=== PATIENT | male | born 2000 | race Caucasian/White ===

== ENCOUNTER 2024-05-12 18:49 | Observation (INO) | payer OTHER ==
[~2024-05-12] VITALS: Ht 182.9 cm; Wt 87.2 kg
[2024-05-12] VITALS (55 sets, daily range): BP systolic 94–135; BP diastolic 51–98
--- NOTE | 2024-05-12 18:50 | NUR ---
PT TO [facility] #10 VIA EMS, PT ARRIVES INTUBATED WITH EMS REPORTING 21 @ TEETH, STATES INTUBATED DUE TO FEAR OF LOSING AIRWAY AFTER ADMINISTRATION OF KETAMINE AND VOMITING. MD AT BEDSIDE, ADDITIONAL STAFF AT BEDSIDE FOR ASSISTANCE, EKG MD CONCHA QUESTIONED FOR EXTUBATION, DENIES AT THIS TIME. AWAITING ALL FURTHER ORDERS.
[2024-05-12] MEDS ORDERED: SODIUM CHLORIDE 0.9% 1,000 ML IV ONE (19:00)
[2024-05-12] MEDS ORDERED: PROPOFOL 100 ML IV ONE (19:00)
--- NOTE | 2024-05-12 19:05 | NUR ---
REPORT RECEIVED FROM EXCAVATING MACHINE OPERATOR. PT IS INTUBATED AT THIS TIME. VSS.
[2024-05-12 19:22] LABS: URINE BILIRUBIN - DIPSTICK Negative (NEGATIVE); URINE BLOOD DIPSTICK Negative (NEGATIVE); URINE COLOR Yellow; URINE GLUCOSE - DIPSTICK Negative (NEGATIVE); URINE KETONE Negative (NEGATIVE); URINE LEUK ESTERASE Negative (NEGATIVE); URINE NITRITE - DIPSTICK Negative (Negative); URINE PH 5.5 (4.5-8.0); URINE PROTEIN - DIPSTICK Negative (NEG-TRACE); URINE UROBILINOGEN - DIPSTICK 0.2 E.U./dL (0.2)
[2024-05-12 19:22] LABS: BASO% 0.7 % (0-3); EOS% 4.6 % (0-8); HEMATOCRIT 43.1 % (39.0-50.0); HEMOGLOBIN 14.6 g/dl (14.0-18.0); IMMATURE GRANULOCYTES 0.6 % (0.0-5.0); LYMPH% 16.9 % (15-41); MEAN CELL VOLUME 93.5 fL CALC (80.0-100.0); MEAN CORPUSCULAR HGB 31.7 pG CALC (26.0-32.0); MEAN CORPUSCULAR HGB CONC 33.9 g/dL CAL (32.0-36.0); MONO% 5.3 % (2-13); NEUT# 5.19 thou/uL (1.82-7.42); NEUT% 71.9 % (42-76); RED BLOOD COUNT 4.61 mill/uL (4.70-6.10); RED CELL DISTRI WIDTH 12.1 % (11.5-15.5)
--- NOTE | 2024-05-12 19:30 | NUR ---
PT IS INTUBATED, PROPOFOL STARTED PER ORDERS. PT IS NOT OPENING HIS EYES, HE IS MOVING HIS EXTREMITIES AND BITING TUBE. PROPOFOL TITRATED UP PER ORDERS. OG PLACED, CXR CONFIRMED PLACMENT. VSS. RESPIRATORY AT BEDSIDE.
[2024-05-12 19:34] LABS: ALBUMIN 4.6 g/dL (3.2-5.0); BILIRUBIN, TOTAL 0.5 mg/dL (0.2-1.3); POTASSIUM 3.9 mmol/l (3.5-5.1); TOTAL PROTEIN 7.1 g/dL (6.3-8.2)
[2024-05-12] MEDS ORDERED: LORazepam 2 MG/ML IV ONE (19:45)
--- NOTE | 2024-05-12 19:47 | NUR ---
ATIVAN GIVEN PER ORDERS PT IS ATTEMPTING TO PULL AT LINES. VSS. PROPOFOL TITRATED PER ORDERS. PT DOES NOT OPEN HIS EYES AT THIS TIME.
--- NOTE | 2024-05-12 20:55 | NUR ---
PT REMAINS INTUBATED/VENTED, PROPOFOL RUNNING TO LAC ORDERED. VSS.
[2024-05-12] MEDS ORDERED: LACTATED RINGER'S 1,000 ML IV PRN (22:00)
--- NOTE | 2024-05-12 22:05 | NUR ---
PT TO CT WITH RN AND RESPIRATORY
--- NOTE | 2024-05-12 22:30 | NUR ---
returned from ct to er 15 as icu hold. transferred to bed x4 assists. vent cont. remains sedated. shelter monitor shows sinus tach. ivf infusing well. goel cath in place. urine clear yellow. history per er record. wrist restraints cont. hob 30 degrees. fall precautions cont.
--- NOTE | 2024-05-12 22:30 | NUR ---
NURSE TO NURSE REPORT
[2024-05-13] VITALS: BP 135/94
[2024-05-13 00:05] VITALS: BP 133/85
--- NOTE | 2024-05-13 02:00 | NUR ---
[id number] pt restless. attempting to extubate self. rt @ bedside & extubated pt. pt smells of etoh. pt is confused. attempted to reorient without success. ivf cont. goel draining well, removed goel per pt request & pt voided well. pt pulled iv out of lac, removed rehabilitation tech, bp cuff & pulse ox, & began to dress self. spoke to pt several times about leaving facility ama & etoh level. etoh level drawn & pt was made aware of result. fed pt turkey wrap, juices & gatorade. trains dispatcher supervisor & security talked to pt several times. pt became more alert & aware of surroundings. cordless phone given to him so he could make phone calls to family & friends in prep for release. pt left several messages to various people. pt up in room & is steady on feet. pt requires MUCH supervision.
--- NOTE | 2024-05-13 03:43 | NUR ---
1252 pt extubated after awakening and following commands while meeting parameters. NIF(-30) cuff deflated and ett withdrawn. pt vocalized name. no stridor noted. bbs. nad. vss.
--- NOTE | 2024-05-13 04:00 | NUR ---
to bed per self then went to sleep.
--- NOTE | 2024-05-13 05:45 | NUR ---
lab here. blood drawn.
[2024-05-13 06:01] LABS: BASO% 0.3 % (0-3); EOS% 1.5 % (0-8); HEMATOCRIT 38.5 % (39.0-50.0); HEMOGLOBIN 13.3 g/dl (14.0-18.0); IMMATURE GRANULOCYTES 0.2 % (0.0-5.0); LYMPH% 21.2 % (15-41); MEAN CELL VOLUME 94.4 fL CALC (80.0-100.0); MEAN CORPUSCULAR HGB 32.6 pG CALC (26.0-32.0); MEAN CORPUSCULAR HGB CONC 34.5 g/dL CAL (32.0-36.0); MONO% 8.4 % (2-13); NEUT# 7.7 thou/uL (1.82-7.42); NEUT% 68.4 % (42-76); RED BLOOD COUNT 4.08 mill/uL (4.70-6.10); RED CELL DISTRI WIDTH 12.5 % (11.5-15.5)
[2024-05-13 06:13] LABS: CREATININE 0.9 mg/dL (0.7-1.3); MAGNESIUM 1.9 mg/dL (1.6-2.3)
--- NOTE | 2024-05-13 07:45 | NUR ---
PT BROUGHT UP VIA BED TO ICU ROOM 7. PT IN STABLE CONDITION. ORIENTED TO ROOM AND CALL LIGHT. ALL BELONGINGS BROUGHT WITH PT. CALL LIGHT IN REACH.
[2024-05-13 08:10] VITALS: BP 114/70
[2024-05-13] MEDS ORDERED: THIAMINE HCL 100 MG TAB PO SCH (09:00)
[2024-05-13] MEDS ORDERED: FOLIC ACID 1 MG/TAB PO SCH (09:00)
--- NOTE | 2024-05-13 10:00 | NUR ---
PT IS SITTING IN THE EDGE OF THE BED. CALL LIGHT IN REACH.
--- NOTE | 2024-05-13 12:00 | NUR ---
PT IS SITTING IN BED AWAKE CALL LIGHT IN HAND.
--- NOTE | 2024-05-13 12:47 | NUR ---
PT HAS FRIEND IN THE ROOM. PT SELF REMOVED IV.
--- NOTE | 2024-05-13 12:56 | NUR ---
PT APPROACHED THE NURSING STATION AND ASKED TO SIGN OUT AMA. PT WAS EDUCATED ABOUT THE RISKS INVOLVED FOR LEAVING AMA. PT STATED HE STILL WANTS TO LEAVE. PT STATED HE HAS ALL HIS BELONGINGS. DR. FOLEY NOTIFIED OF LEAVING.
== END 2024-05-13 12:56 | disposition left against medical advice (07) | DRG 894 ==
LOC: ED 18:49 → ED-I 19:38 → ED 19:38 → ED-I 21:11 → ED 21:25 → ED-I 21:26 → ICU 05-13 07:45
PROVIDERS: Family Medicine; ADMIT Internal Medicine; ATTEND Internal Medicine
PROC: 0T9B70Z Drainage of Bladder with Drainage Device, Via Natural or Artificial Opening (ICD-10-PCS; principal; 2024-05-12)
PROC: 5A1935Z Respiratory Ventilation, Less than 24 Consecutive Hours (ICD-10-PCS; 2024-05-12)
DX: F10.129 Alcohol abuse with intoxication, unspecified (principal); G93.41 Metabolic encephalopathy; Y90.8 Blood alcohol level of 240 mg/100 ml or more; F32.A Depression, unspecified; F43.10 Post-traumatic stress disorder, unspecified
CPT/HCPCS: J2060